=== PATIENT | female | born 1970 | race Two or more races ===

== ENCOUNTER 2022-11-09 14:56 | Emergency (ER) | payer OTHER ==
[~2022-11-09] VITALS: Ht 160 cm; Wt 107.0 kg
[2022-11-09 15:05] VITALS: BP 131/77; PULSE 90; RESP 18; TEMP 98.5; O2SAT 98
[2022-11-09] MEDS ORDERED: DOXYCYCLINE HYCLATE 100MG CAPSULE PO ONE (17:30)
[2022-11-09] MEDS ORDERED: TETANUS, DIPHTHERIA, PERTUSSIS VAC/PF 0.5ML (>10YR OLD) IM ONE (17:30)
[2022-11-09] MEDS ORDERED: BACITRACIN 15GM TUBE TOP ONE (17:30)
[2022-11-09] MEDS ORDERED: SULFAMETHOXAZOLE/TRIMETHOPRIM 800/160MG TABLET PO ONE (18:30)
[2022-11-09] MEDS ORDERED: DOXY-456 MT (18:53)
[2022-11-09] MEDS ORDERED: SULF1TAB48 MT (18:53)
[2022-11-09] MEDS ORDERED: MUPI1OIN4 TP (18:53)
== END 2022-11-09 21:12 | disposition home or self-care (01) ==
LOC: ER 14:56
DX: T14.8XXA Other injury of unspecified body region, initial encounter (principal); I10 Essential (primary) hypertension; E78.00 Pure hypercholesterolemia, unspecified; E11.9 Type 2 diabetes mellitus without complications; J45.909 Unspecified asthma, uncomplicated; Z88.0 Allergy status to penicillin; W54.0XXA Bitten by dog, initial encounter; Y93.89 Activity, other specified; Y92.89 Other specified places as the place of occurrence of the external cause; Y99.8 Other external cause status
CPT/HCPCS: 90471; 90715; 99283